=== PATIENT | female | born 1950 | race American Indian/Alaskan Native ===

== ENCOUNTER → 2023-08-02 | Outpatient (CLI) | payer MEDICARE, BC | LOC: M SOG 14:16 | PROVIDERS: ATTEND Physician Assistant | DX: M19.041 Primary osteoarthritis, right hand (principal) ==

== ENCOUNTER 2023-09-27 08:34 | Day surgery (SDC) | payer MEDICARE, BC ==
[~2023-09-27] VITALS: Ht 160 cm; Wt 79.8 kg
[~2023-09-27 08:34] MED LIST: ACET-861 PO; ALLE180T33 PO; ALPR0.5T3 PO; AZEL1SPR3; BAYE81TA10 PO; CYTO5TAB8 PO; D3 M5000 PO; FAMO20TA PO; FAMO40TA3 PO; MECL-86 PO; NASA1SPR; PANT40TA29 PO; ROSU5TAB40 PO; SPIR50TA4 PO; SUCR1TAB56 PO; SYMB16INH INH; SYNT112T2 PO; VASC1CAP2 PO; VENTAER INH
[2023-09-27] MEDS ORDERED: LIDOCAINE W/EPINEPHRINE 1% 20ML VIAL As Ordered ONE (09:21)
[2023-09-27] MEDS ORDERED: SODIUM BICARBONATE 8.4% INJ 50MEQ 50ML VIAL As Ordered ONE (09:21)
[2023-09-27] MEDS ORDERED: LIDOCAINE W/EPINEPHRINE 1% 20ML VIAL XX ONE (09:25)
[2023-09-27] MEDS ORDERED: SODIUM BICARBONATE 8.4% INJ 50MEQ 50ML VIAL XX ONE (09:25)
[2023-09-27] MEDS ORDERED: BACITRACIN OINTMENT 30GM TUBE ONE (11:47)
[2023-09-27 12:40] VITALS: BP 145/85; TEMP 97.6; O2SAT 100
== END 2023-09-27 12:59 | disposition home or self-care (01) ==
LOC: M SDC 08:34
PROVIDERS: ATTEND Orthopaedic Surgery Hand Surgery
DX: M65.341 Trigger finger, right ring finger (principal); M65.321 Trigger finger, right index finger; I25.10 Atherosclerotic heart disease of native coronary artery without angina pectoris; E03.9 Hypothyroidism, unspecified; E21.3 Hyperparathyroidism, unspecified; F41.9 Anxiety disorder, unspecified; F32.9 Major depressive disorder, single episode, unspecified; J44.9 Chronic obstructive pulmonary disease, unspecified; R06.83 Snoring; G47.33 Obstructive sleep apnea (adult) (pediatric); R39.81 Functional urinary incontinence; Z87.891 Personal history of nicotine dependence; Z88.1 Allergy status to other antibiotic agents; Z88.0 Allergy status to penicillin; Z88.2 Allergy status to sulfonamides; Z91.048 Other nonmedicinal substance allergy status; Z79.82 Long term (current) use of aspirin; Z79.899 Other long term (current) drug therapy